=== PATIENT | female | born 1985 ===

== ENCOUNTER 2022-03-02 14:20 | Emergency (ER) | payer SELFPAY ==
[2022-03-02 14:21] VITALS: BP 135/93; PULSE 115; RESP 16; TEMP 36; O2SAT 99
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
[2022-03-02 15:16] LABS: Abs Immature Grans 0.03 10^3/uL (0.0-0.06); Absolute Basophil Count 0.04 10^3/uL (0.0-0.2); Absolute Eosinophil Count 0.09 10^3/uL (0.0-0.7); Absolute Monocyte Count 0.74 10^3/uL (0.1-0.8); Basophils % 0.4; Eosinophils % 0.8; HCT 38.6 % (36.0-46.0); HGB 12.8 g/dL (11.2-15.7); Immature Grans % 0.3; Lymphocytes % 11.9; MCH 31.3 pg (27.0-33.0); MCHC 33.2 % (32.0-36.0); MCV 94 fL (80-95); MPV 9.4 fL (8.0-11.0); Monocytes % 6.8; Neutrophils % 79.8; Platelet Count 280 10^3/uL (130-400); RBC 4.09 10^6/uL (3.93-5.22); RDW 11.8 % (11.7-14.6); RDW-SD 40.7 fL; WBC 10.95 10^3/uL (4.4-10.8)
[2022-03-02] MEDS: Normal Saline 1,000 ML 1000 ML IV (15:20)
[2022-03-02 15:21] LABS: Absolute Neutrophil Count 8.74 10^3/uL (1.2-6.7)
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
[2022-03-02 15:35] LABS: ALT 15 U/L (14-59); AST 16 U/L (15-37); Albumin 4.1 g/dL (3.4-5.0); Alkaline Phosphatase 60 U/L (46-116); Anion Gap 11.3 mmol/L (3-11); BUN 16 mg/dL (7-18); Bilirubin, Total 0.5 mg/dL (0.2-1.0); CO2 24.7 mmol/L (21.0-32.0); CREATININE 0.7 mg/dL (0.55-1.02); Calcium 8.7 mg/dL (8.5-10.1); Chloride 105 mmol/L (98-107); Glucose 84 mg/dL (74-106); Magnesium 2.1 mg/dL (1.8-2.4); Sodium 141 mmol/L (136-145); Total Protein 7.4 g/dL (6.4-8.2)
[2022-03-02 17:05] VITALS: BP 123/84; PULSE 83; RESP 17; TEMP 37; O2SAT 99
[2022-03-02 17:15] VITALS: BP 123/84; PULSE 83; RESP 17; TEMP 37; O2SAT 99
[2022-03-02] MEDS: Acetaminophen 325 MG TAB 650 MG PO (17:16)
== END 2022-03-02 17:16 | disposition home or self-care (01) ==
PROVIDERS: Emergency Provider Physician Assistant
DX: S00.81XA Abrasion of other part of head, initial encounter (principal); S00.83XA Contusion of other part of head, initial encounter; S40.212A Abrasion of left shoulder, initial encounter; S19.89XA Other specified injuries of other specified part of neck, initial encounter; V19.3XXA Pedal cyclist (driver) (passenger) injured in unspecified nontraffic accident, initial encounter
CPT/HCPCS: 36415; 71250; 80053; 81025; 96360; 96361; 99284; 70450; 72125; 74176; 83735; 85025